=== PATIENT | female | born 1970 | race Caucasian/White ===

== ENCOUNTER 2020-08-12 06:51 | Emergency (ER) | payer SELFPAY ==
[2020-08-12 06:56] VITALS: BP 161/82; PULSE 92; RESP 16; TEMP 36.7; O2SAT 96; BMI 41.9
--- NOTE | 2020-08-12 07:03 | ED_ITS ---
HPI - Dizziness General: Chief Complaint: Dizziness Stated Complaint: High BP/Headache/ Dizziness Time Seen by Provider: 08/12/20 06:52 History of Present Illness: HPI Narrative: 49-year-old female presents with complaint of headache elevated blood pressure dizziness. Said lightheadedness and dizziness at times no visual symptoms. Her symptoms are completely resolved prior to arrival today. She is on lisinopril 5 mg daily for blood pressure she has not missed any doses or run out but recently moved to the area and has not established with a primary care doctor. She not had any chest pain or shortness of breath. MD elicited complaint: dizziness and lightheadedness Pertinent past history: other (Hypertension) Onset (ago): year(s) Timing: episodic Severity: mild Description: lightheadedness History of similar symptoms: Yes Exacerbating factors: nothing Relieving factors: nothing Associated symptoms: Denies change in hearing, chest pain, chills, cough, diaphoresis, ear discharge, ear pressure, fevers/chills, headache(s), malaise, nausea, nasal congestion, palpitations, rash, short of breath, syncope, tinnitus, vomiting or weakness Associated neuro symptoms: Deny confusion, difficulty speaking, dysphagia, diplopia, extremity weakness, facial numbness, facial weakness, gait changes, numbness in extremities or visual changes Review of Systems Const: Denies: chills, malaise or diaphoresis ENMT: Denies: ear discharge, change in hearing, tinnitus or nasal congestion Card: Denies: chest pain, palpitations or syncope Resp: Denies: dyspnea, productive cough or non-productive cough GI: Denies: nausea, vomiting or dysphagia : Denies: flank pain, difficulty voiding, dysuria, urinary frequency or urinary urgency Skin/Breast: Denies: rash or pruritus Neuro: Denies: headache(s), numbness in extremities or confusion Physical Exam Const: COMMON NORMALS: average body habitus, patient oriented x3 and alert GENERAL APPEARANCE: cooperative, comfortable, well kempt and well developed NUTRITIONAL APPEARANCE: obese ORIENTATION/CONSCIOUSNESS: Yes awake, Yes oriented to person and Yes oriented to place HENMT: COMMON NORMALS: normocephalic, atraumatic and EAC's normal HEAD & SCALP: normocephalic and atraumatic EXTERNAL AUDITORY CANAL: EAC's normal Eye: COMMON NORMALS: Equal, round and reactive pupils present, EOMs intact bilaterally, conjunctivae normal and no scleral icterus CONJUNCTIVA: Yes conjunctivae normal PUPIL: Yes Equal, round and reactive pupils present Neck/C-Spine: COMMON NORMALS: full ROM, no lymphadenopathy, supple, no meningeal signs and Thyroid normal THYROID: Thyroid normal and asymmetrical Lymph: LYMPHATIC: no lymphadenopathy noted Resp: COMMON NORMALS: normal respiratory effort, No retractions, No use of accessory muscles and clear to auscultation bilaterally AUSCULTATION: clear to auscultation bilaterally Cardio: COMMON NORMALS: regular rate and regular rhythm RATE: regular rate RHYTHM: regular rhythm HEART SOUNDS: no murmurs GI: COMMON NORMALS: Normal to inspection, nondistended, normoactive bowel sounds present, Soft to palpation and No hepatosplenomegaly present PALPATION: Yes Soft to palpation and Yes No hepatosplenomegaly present : COMMON NORMALS: Yes no CVA tenderness BLADDER/KIDNEY EXAM: Yes no CVA tenderness Back/Pelvis: COMMON NORMALS: no CVA tenderness LUMBAR SPINE/LOWER BACK: Yes normal to inspection Extremity: COMMON NORMALS: no clubbing, cyanosis or edema, no calf tenderness and no pedal edema Neuro: COMMON NORMALS: patient oriented x3 SENSORIUM/ORIENTATION: Yes alert, Yes oriented to person and Yes oriented to place MENINGEAL SIGNS: Yes no meningeal signs Psych: APPEARANCE: Yes well kempt Skin: COMMON NORMALS: no rashes or lesions noted and turgor normal GENERAL SKIN EXAM: no rashes or lesions noted and turgor normal Course Vital Signs: Vital signs: Vital Signs Temperature 98.0 F 08/12/20 06:56 Pulse Rate 89 08/12/20 07:04 Respiratory Rate 16 08/12/20 07:04 Blood Pressure 161/82 08/12/20 07:04 Pulse Oximetry 98 08/12/20 07:04 MDM - Dizziness MDM Narrative: Medical decision making narrative: Neurologically intact no focal neurologic deficits audible increase her lisinopril set up for primary care physician Discharge Plan Discharge Patient Disposition: Home Clinical Impression: Essential hypertension Condition: Stable Prescriptions: New lisinopril 10 mg tablet 10 mg PO DAILY Qty: 30 RF: 0 Discontinued lisinopril 5 mg Tablet 5 mg PO DAILY RF: 0 Discharge Orders: Discharge ED (Routine); Ordered 08/12/20 Ordered By: Jose Marcano Discharge Diet: Usual diet Discharge Activity: Resume usual activity Patient Instructions: Opioid Safety Activity Restrictions/Additional Instructions: Case management will assist in establishing a primary care physician for you to help manage her blood pressure. Coding Level of Care Code ED [employer]ing [employer] Driver for Eloisa Kelly NIH stroke score NIHSS Level Of Consciousness - 1a: 0 Level Of Consciousness Questions - 1b: Both Correct Level Of Consciousness Commands - 1c: Both Correct Best Gaze - 2: Normal Visual Vera - 3: No Visual Loss Facial Palsy - 4: Normal Motor Arm Right - 5: No Drift Motor Arm Left - 5: No Drift Motor Leg Right - 6: No Drift Motor Leg Left - 6: No Drift Limb Ataxia - 7: Absent Sensory - 8: Normal Best Language - 9: No Aphasia Dysarthia - 10: Normal Extinction And Inattention - 11: 0 Score Total Score: 0
[2020-08-12 07:04] VITALS: BP 161/82; PULSE 89; RESP 16; O2SAT 98
[2020-08-12 07:12] VITALS: BP 161/82; PULSE 85; RESP 18; O2SAT 98
--- NOTE | 2020-08-13 13:00 | DCPLANNER ---
manager strategy & account had message to speak with patient about getting established with a primary care physician. manager strategy & account spoke with patient, offered to help get her established with a primary care physician, patient stated that she would take care of getting one herself.
== END 2020-08-12 07:13 | disposition home or self-care (01) ==
LOC: ER 07:16
PROVIDERS: Emergency Provider Family Medicine
DX: I10 Essential (primary) hypertension (principal)
CPT/HCPCS: 99282

== ENCOUNTER 2020-12-26 12:09 | Emergency (ER) | payer BC, OTHER, SELFPAY ==
[2020-12-26 12:15] VITALS: BP 131/75; PULSE 66; RESP 19; TEMP 36.7; O2SAT 97
[2020-12-26 12:35] VITALS: BP 146/83; PULSE 68; RESP 16; TEMP 36.6; O2SAT 98
--- NOTE | 2020-12-26 12:38 | W.ED.EXTPRO ---
HPI - Extremity Problem General: Chief complaint: Extremity Injury, Lower Stated complaint: left foot injury Time Seen by Provider: 12/26/20 12:25 History of Present Illness: HPI Narrative: Screw from a shelf went through her shoe and cut her large toe and the toe next to it. This happened approximately less than hour ago. Complaint: extremity pain and other (Laceration) Onset (ago): minute(s) Location: left and toe Quality: aching Associated symptoms: Reports no associated symptoms; Deny fever(s) Review of Systems Const: Denies: fever(s) or chills Skin/Breast: Reports: other (Laceration abrasion to the left big toe 1 toe next to it that happened from) Psych: Reports: anxiety Physical Exam Const: COMMON NORMALS: no acute distress GENERAL APPEARANCE: cooperative Psych: COMMON NORMALS: mental status grossly normal Skin: OTHER: Patient has a superficial laceration to her left big toe and a very small half inch very superficial laceration to the toe next to it. I closed the laceration with skin adhesive and Steri-Strips patient has full range of motion of the toe Procedures Laceration Laceration 1: Site: lower extremity Side (If applicable): left Size (cm): 4 Description: linear Depth: simple, single layer Pre-repair: wound explored, irrigated extensively and deep structures intact Skin layer closed with: other (Skin adhesive and Steri-Strips) Course Vital Signs: Vital signs: Vital Signs Temperature 98.1 F 12/26/20 12:15 Pulse Rate 66 12/26/20 12:15 Respiratory Rate 19 H 12/26/20 12:15 Blood Pressure 131/75 12/26/20 12:15 Pulse Oximetry 97 12/26/20 12:15 Discharge Plan Discharge Patient Disposition: Home Clinical Impression: Laceration, Abrasion Condition: Stable Prescriptions: New cephalexin 500 mg capsule 500 mg PO Q8H 7 Days Qty: 21 RF: 0 No Action lisinopril 10 mg tablet 10 mg PO DAILY Qty: 30 RF: 0 Discharge Orders: Discharge ED (Routine); Ordered 12/26/20 Ordered By: Byron Cain Discharge Diet: Usual diet Discharge Activity: Resume usual activity Patient Instructions: Skin Adhesive Care (ED) Activity Restrictions/Additional Instructions: Follow instruction skin adhesive care handout. Follow-up with urgent care up in the morning if any problems develop can get antibiotics filled take those if any redness swelling evidence of infection is occurring. Coding Level of Care Code ED Environmental Health Nurse for Eloisa Kelly
[2020-12-26] MEDS: tetanus-dipt-pertussis 0.5 mL SDV IM (12:41)
[2020-12-26 13:00] VITALS: BP 105/70; PULSE 60; RESP 16; TEMP 36.5; O2SAT 99
== END 2020-12-26 12:55 | disposition home or self-care (01) ==
PROVIDERS: Emergency Provider Nurse Practitioner Family
DX: S91.112A Laceration without foreign body of left great toe without damage to nail, initial encounter (principal); S91.115A Laceration without foreign body of left lesser toe(s) without damage to nail, initial encounter; W26.8XXA Contact with other sharp object(s), not elsewhere classified, initial encounter
CPT/HCPCS: 90471; 90715; 99282